=== PATIENT | male | born 1945 | race Caucasian/White ===

== ENCOUNTER 2016-12-17 11:00 | Day surgery (SDC) | payer OTHER, BC ==
[~2016-12-17] VITALS: Ht 175.3 cm; Wt 72.6 kg
[~2016-12-17 11:00] MED LIST: HYZAAR 100-21 TABLET PO; MEN'S MULTI-VI1 EACH PO
[2016-12-17 11:41] VITALS: BP 139/87
[2016-12-17 15:25] VITALS: BP 118/58
[2016-12-17 16:41] VITALS: BP 172/78
== END 2016-12-17 17:08 | disposition home or self-care (01) ==
LOC: SDC 11:00
PROC: 08B53ZZ Excision of Left Vitreous, Percutaneous Approach (ICD-10-PCS; principal; 2016-12-17)
DX: H33.22 Serous retinal detachment, left eye (principal); I10 Essential (primary) hypertension; R94.31 Abnormal electrocardiogram [ECG] [EKG]
CPT/HCPCS: 93005; J0690; J1100; J2795; J3300